=== PATIENT | female | born 1985 | race Two or more races ===

== ENCOUNTER 2021-05-07 15:30 | Outpatient (CLI) | payer OTHER | END 2021-05-07 15:45 | disposition home or self-care (01) | LOC: PPH VACUNA 15:30 | PROVIDERS: ATTEND Emergency Medicine Pediatric Emergency Medicine | DX: Z23 Encounter for immunization (principal) ==

== ENCOUNTER 2023-09-19 09:00 | Inpatient (IN) | payer OTHER ==
[~2023-09-19] VITALS: Ht 157.5 cm; Wt 103.9 kg
[2023-09-19 11:13] LABS: HEMATOCRIT 40.5 % (36.0-45.00); HEMOGLOBIN 13.5 g/dL (12.0-15.00); MEAN CELL VOLUME 81.6 fL (80.00-100.00); MEAN CORPUSCULAR HEMOGLOBIN 27.2 pg (27.00-32.0); MEAN CORPUSCULAR HGB CONC 33.3 g/dl (32.0-36.0); PLATELET COUNT 286 K/uL (150-450); RED BLOOD COUNT 4.96 M/uL (4.00-6.00); RED CELL DISTRIBUTION WIDTH 13.9 % (11.5-14.5)
[2023-09-19 11:27] LABS: URINE APPEARANCE Clear; URINE BILIRRUBIN Negative (NEGATIVE); URINE BLOOD Negative; URINE COLOR Yellow; URINE GLUCOSE Negative (NEGATIVE); URINE LEUKOCYTE Negative; URINE NITRATE Negative; URINE PROTEIN Negative (NEGATIVE); URINE UROBILINOGEN 0.2 E.U./dl
[2023-09-19 11:29] LABS: URINE BACTERIA 8842.1 uL (0.0-1933); URINE EPITHELIAL CELLS 21.9 uL (0.0-38.8); URINE WBC 81.4 uL (0.0-23.2)
[2023-09-19 12:01] LABS: ALBUMIN 2.7 gm/dL (3.4-5.0); BILIRUBIN TOTAL 0.21 mg/dL (0.3-1.2); CALCIUM 9.4 mg/dL (8.5-10.1); CREATININE SERUM 0.48 mg/dL (0.55-1.02); GFR 143.98; POTASSIUM 4.17 mEq/L (3.5-5.1); TOTAL PROTEIN 6.7 gm/dL (6.4-8.2)
[2023-09-19 12:04] LABS: INR 0.94; PROTHROMBIN TIME 9.9 SECONDS (9.0-11.5)
[2023-09-19 12:05] LABS: PARTIAL THROMBOPLASTIN TIME 26.8 SECONDS (22.0-34.0)
[2023-09-28] MEDS ORDERED: PRENATE ELITE1 EAC2 PO (08:37)
[2023-09-28] MEDS ORDERED: CLINDAMYCIN PHOSPHATE 150 MG/ML (900mg) ONE (11:24)
[2023-09-28] MEDS ORDERED: GENTAMICIN SULFATE 40 MG/ML VIAL ONE (11:25)
[2023-09-28] MEDS ORDERED: CITRIC ACID/SODIUM CITRATE 30 ML BLIST.PACK PO ONE ×2 (11:33→12:00)
[2023-09-28] MEDS ORDERED: OXYTOCIN 10 UNITS/ML VIAL ONE ×2 (11:49→16:47)
[2023-09-28] MEDS ORDERED: ERYTHROMYCIN BASE 1 GM TUBE OP ONE ×2 (11:49→13:30)
[2023-09-28] MEDS ORDERED: OXYTOCIN 1,000 ML IV SCH (13:30)
[2023-09-28] MEDS ORDERED: OXYTOCIN 10 UNITS/ML VIAL IV ONE (13:30)
[2023-09-28] MEDS ORDERED: IBUprofen 400 MG TABLET PO PRN (13:30)
[2023-09-28] MEDS ORDERED: MEPERIDINE HCL/PF 50 MG/ML VIAL IM PRN (13:30)
[2023-09-29] MEDS ORDERED: OxyCODONE HCL/APAP UD (PERCOCET) PO PRN (08:00)
[2023-09-29 10:43] LABS: HEMATOCRIT 37.9 % (36.0-45.00); HEMOGLOBIN 12.6 g/dL (12.0-15.00); MEAN CELL VOLUME 82.8 fL (80.00-100.00); MEAN CORPUSCULAR HEMOGLOBIN 27.6 pg (27.00-32.0); MEAN CORPUSCULAR HGB CONC 33.3 g/dl (32.0-36.0); PLATELET COUNT 249 K/uL (150-450); RED BLOOD COUNT 4.57 M/uL (4.00-6.00); RED CELL DISTRIBUTION WIDTH 13.7 % (11.5-14.5)
== END 2023-09-30 12:46 | disposition home or self-care (01) | DRG 785 ==
LOC: O/R 09-28 08:20 → OB/GYN 09-28 08:20 → SURH 09-28 09:00 → OB/GYN 09-28 14:04
PROVIDERS: Obstetrics & Gynecology; ADMIT Obstetrics & Gynecology Gynecology; ATTEND Obstetrics & Gynecology Gynecology
PROC: 0UB70ZZ Excision of Bilateral Fallopian Tubes, Open Approach (ICD-10-PCS; 2023-09-28)
PROC: 4A1HXCZ Monitoring of Products of Conception, Cardiac Rate, External Approach (ICD-10-PCS; 2023-09-28)
PROC: 10D00Z1 Extraction of Products of Conception, Low, Open Approach (ICD-10-PCS; principal; 2023-09-28 11:40)
DX: O34.211 Maternal care for low transverse scar from previous cesarean delivery (principal); Z3A.39 39 weeks gestation of pregnancy; Z37.0 Single live birth; Z20.822 Contact with and (suspected) exposure to COVID-19; Z30.2 Encounter for sterilization